=== PATIENT | male | born 1975 | race Caucasian/White ===

== ENCOUNTER 2016-12-18 00:12 | Emergency (ER) | payer OTHER ==
[2016-12-18 00:27] VITALS: BP 145/89; PULSE 91; TEMP 98.3; BMI 25.8
--- NOTE | 2016-12-18 00:51 | PDOC ---
History of Present Illness - General History Source: Patient Exam Limitations: No Limitations - History of Present Illness Initial Comments: The patient is a 41 yo M with a past medical history significant for DM, alcohol use (drinks daily) who presents with L shoulder pain and R ankle pain s/ p falling down flight of stairs at home. The patient states he slipped on water. The patient denies head trauma and LOC. He states that he has pain through his L foot but he is able to bear weight. Patient states he took tylenol with no relief. The patient denies trauma to other areas. The patient denies chest pain, palpitations and lightheadedness. The patient denies nausea , vomiting, diarrhea and abdominal pain. <Keysha Green - Last Filed: 12/18/16 00:55> - General History Source: Patient <TreyPio matt - Last Filed: 12/18/16 01:56> - General Chief Complaint: Injury Stated Complaint: PAIN/RT FOOT Time Seen by Provider: 12/18/16 00:51 Past History <Keysha Green - Last Filed: 12/18/16 00:55> - Immunization History Immunization Up to Date: Yes - Psycho/Social/Smoking Cessation Hx Anxiety: No Suicidal Ideation: No Smoking History: Current every day smoker Have you smoked in the past 12 months: Yes Number of Cigarettes Smoked Daily: 8 Information on smoking cessation initiated: No 'Breaking Loose' booklet given: 08/10/13 Hx Alcohol Use: No Drug/Substance Use Hx: No Substance Use Type: None <Pio Gan - Last Filed: 12/18/16 01:56> - Past Medical History Allergies/Adverse Reactions: Allergies Allergy/AdvReac Type Severity Reaction Status Date / Time No Known Allergies Allergy Verified 12/18/16 00:24 Home Medications: Ambulatory Orders No Home Medications 0 dose .ROUTE UTDICT 08/10/13 Ibuprofen 800 mg PO TID #30 tablet 12/18/16 Review of Systems - Review of Systems Able to Perform ROS?: Yes Comments:: CONSTITUTIONAL: Absent: fever, no chills, no fatigue EYES: Absent: visual changes ENT: Absent: ear pain, no sore throat CARDIOVASCULAR: Absent: chest pain, no palpitations RESPIRATORY: Absent: cough, no SOB GI: Absent: abdominal pain, no nausea, no vomiting, no constipation, no diarrhea GENITOURINARY: Absent: dysuria, no frequency, no hematuria MUSKULOSKELETAL: +L shoulder and r foot pain. Absent: back pain SKIN: Absent: rash <Keysha Green - Last Filed: 12/18/16 00:55> *Physical Exam - Vital Signs Last Vital Signs Temp Pulse Resp BP Pulse Ox 98.3 F 91 H 18 145/89 98 12/18/16 00:25 12/18/16 00:25 12/18/16 00:25 12/18/16 00:25 12/18/16 00:25 - Physical Exam Comments: GENERAL: Well-appearing, well-nourished. No apparent distress. HEENT: Normocephalic, atraumatic. PERRL, EOM intact. CARDIOVASCULAR: Normal S1, S2. Regular rate and rhythm. PULMONARY: Clear to auscultation bilaterally. ABDOMEN: Soft, non-distended, non-tender. EXTREMITIES: Normal ROM in all four extremities. No gross deformities. Tenderness on anterior R foot. SKIN: Warm, dry. No rash NEUROLOGICAL: No focal neurological deficits. <Keysha Green - Last Filed: 12/18/16 00:55> - Vital Signs Last Vital Signs Temp Pulse Resp BP Pulse Ox 98.3 F 91 H 18 145/89 98 12/18/16 00:25 12/18/16 00:25 12/18/16 00:25 12/18/16 00:25 12/18/16 00:25 <Pio Gan - Last Filed: 12/18/16 01:56> ED Treatment Course - RADIOLOGY Radiology Studies Ordered: Category Date Time Status ANKLE & FOOT-RIGHT* [RAD] Stat Radiology 12/18/16 00:30 Ordered <Pio Gan - Last Filed: 12/18/16 01:56> Medical Decision Making - Medical Decision Making 12/18/16 01:55 Dr. aGn: The scribe's documentation has been prepared under my direction and personally reviewed by me in its entirery. I confirm that the note above accurately reflects all work, treatment, procedures, and medical decision making performed by me. <Pio Gan - Last Filed: 12/18/16 01:56> *DC/Admit/Observation/Transfer - Attestations Scribe Attestion: Documentation prepared by Keysha Green, acting as medical artist for Pio Gan MD/. <Keysha Green - Last Filed: 12/18/16 00:55> - Discharge Dispostion Admit: No <Pio Gan - Last Filed: 12/18/16 01:56> Diagnosis at time of Disposition: Right ankle sprain Qualifiers: Encounter type: initial encounter Involved ligament of ankle: unspecified ligament Qualified Code(s): S93.401A - Sprain of unspecified ligament of right ankle, initial encounter Left shoulder strain Qualifiers: Encounter type: initial encounter Qualified Code(s): S46.912A - Strain of unspecified muscle, fascia and tendon at shoulder and upper arm level, left arm , initial encounter - Discharge Dispostion Disposition: HOME Condition at time of disposition: Stable - Referrals Referrals: Jenny Hernandez MD [Primary Care Provider] - Karri Russell MD [Staff Physician] - - Patient Instructions Printed Discharge Instructions: DI for Ankle Sprain, DI for Shoulder Sprain Additional Instructions: Rest, ice, elevate foot. Take medication as directed. Follow up with the doctor referred to you if symptoms don't improve Print Language: SALVADOREAN - Post Discharge Activity Work/School Note: Back to Work
[2016-12-18] MEDS ORDERED: IBUPROFEN 400 MG TABLET (FP) PO ONE ×2 (00:56→01:02)
== END 2016-12-18 01:58 | disposition home or self-care (01) ==
LOC: JER 00:12
DX: S93.401A Sprain of unspecified ligament of right ankle, initial encounter (principal); S46.912A Strain of unspecified muscle, fascia and tendon at shoulder and upper arm level, left arm, initial encounter; E11.9 Type 2 diabetes mellitus without complications; F10.10 Alcohol abuse, uncomplicated; F17.210 Nicotine dependence, cigarettes, uncomplicated; W10.9XXA Fall (on) (from) unspecified stairs and steps, initial encounter; Y93.9 Activity, unspecified; Y92.9 Unspecified place or not applicable
CPT/HCPCS: 73030-TC-LT; 73610-TC-RT; 73630-TC-RT; 99283-25

== ENCOUNTER 2018-07-31 22:22 | Emergency (ER) | payer OTHER ==
[2018-07-31 22:46] VITALS: BP 131/84; PULSE 88; TEMP 98.1; BMI 27.7
--- NOTE | 2018-08-01 01:56 | PDOC ---
History of Present Illness - General Chief Complaint: Weakness Stated Complaint: NUMbNESs IN LEFT HAND Time Seen by Provider: 08/01/18 01:35 History Source: Patient Exam Limitations: No Limitations - History of Present Illness Initial Comments: 08/01/18 01:50 Patient is a 43-year-old male with history of DM here with complaints of weakness to the left wrist unable to extend at the wrist. States he had been drinking for the past 3 days does not remember what happened however he woke up at 8:00 this morning with the risks in this fashion. States no pain, no numbness or tingling. PMD: Unable to remember name PMHX: As above PSOHX: (+) cig 15/day, etoh weekends, no drugs ALL: NKDA GENERAL/CONSTITUTIONAL: [No fever or chills. No weakness. No weight change.] HEAD, EYES, EARS, NOSE AND THROAT: [No change in vision. No ear pain or discharge. No sore throat.] CARDIOVASCULAR: [No chest pain or shortness of breath.] RESPIRATORY: [No cough, wheezing, or hemoptysis.] GASTROINTESTINAL: [No nausea, vomiting, diarrhea or constipation. No rectal bleeding.] GENITOURINARY: [No dysuria, frequency, or change in urination.] MUSCULOSKELETAL: [No joint or muscle swelling or pain. No neck or back pain.] SKIN AND BREASTS: [No rash or easy bruising.] NEUROLOGIC: [No headache, vertigo, loss of consciousness, or loss of sensation.] PSYCHIATRIC: [No depression or anxiety.] ENDOCRINE: [No increased thirst. No abnormal weight change.] HEMATOLOGIC/LYMPHATIC: [No anemia, easy bleeding, or history of blood clots.] ALLERGIC/IMMUNOLOGIC: [No hives or skin allergy. No latex allergy.] GENERAL: [The patient is awake, alert, and fully oriented, in no acute distress. ] HEAD: [Normal with no signs of trauma.] EYES: [Pupils equal, round and reactive to light, extraocular movements intact, sclera anicteric, conjunctiva clear.] ENT: [Ears normal, nares patent, oropharynx clear without exudates. Moist mucous membranes.] NECK: [Normal range of motion, supple without lymphadenopathy, JVD, or masses.] LUNGS: [Breath sounds equal, clear to auscultation bilaterally. No wheezes, and no crackles.] HEART: [Regular rate and rhythm, normal S1 and S2 without murmur, rub.] ABDOMEN: [Soft, nontender, normoactive bowel sounds. No guarding, no rebound. No masses.] EXTREMITIES: [decrease range of motion at the left wrist and fingers to flexion , no edema. No clubbing or cyanosis. No cords, erythema, or tenderness.] NEUROLOGICAL: [Cranial nerves II through XII grossly intact. (+) Wristdrop left (+) radial nerve palsy, (+) sensory is intact left fingers, decrease tension reflex, Normal speech, normal gait.] PSYCH: [Normal mood, normal affect.] SKIN: [Warm, Dry, normal turgor, no rashes or lesions noted.] Past History - Past Medical History Allergies/Adverse Reactions: Allergies Allergy/AdvReac Type Severity Reaction Status Date / Time No Known Allergies Allergy Verified 07/31/18 22:46 Home Medications: Ambulatory Orders No Home Medications 0 dose .ROUTE UTDICT 08/10/13 Ibuprofen 800 mg PO TID #30 tablet 12/18/16 COPD: No - Immunization History Immunization Up to Date: Yes - Suicide/Smoking/Psychosocial Hx Smoking History: Never smoked Have you smoked in the past 12 months: No Number of Cigarettes Smoked Daily: 8 Information on smoking cessation initiated: No 'Breaking Loose' booklet given: 08/10/13 Hx Alcohol Use: No Drug/Substance Use Hx: No Substance Use Type: None *Physical Exam - Vital Signs Last Vital Signs Temp Pulse Resp BP Pulse Ox 98.1 F 88 16 131/84 100 07/31/18 22:43 07/31/18 22:43 07/31/18 22:43 07/31/18 22:43 07/31/18 22:43 Moderate Sedation - Procedure Monitoring Vital Signs: Procedure Monitoring Vital Signs Temperature 98.1 F 07/31/18 22:43 Pulse Rate 88 07/31/18 22:43 Respiratory Rate 16 07/31/18 22:43 Blood Pressure 131/84 07/31/18 22:43 O2 Sat by Pulse Oximetry (%) 100 07/31/18 22:43 Medical Decision Making - Medical Decision Making 08/01/18 01:50 Patient is a 43-year-old male with history of DM here with complaints of weakness to the left wrist unable to extend at the wrist. States he had been drinking for the past 3 days does not remember what happened however he woke up at 8:00 this morning with the risks in this fashion. States no pain, no numbness or tingling. Symptoms consistent with radial nerve palsy. Cock-up splint Referral to neurology I discussed the physical exam findings, ancillary test results and final diagnoses with the patient. I answered all of the patient's questions. The patient was satisfied with the care received and felt comfortable with the discharge plan and treatment plan. The Patient agrees to follow up with the primary care physician within 24-72 hours. *DC/Admit/Observation/Transfer Diagnosis at time of Disposition: Left radial nerve palsy - Discharge Dispostion Disposition: HOME Condition at time of disposition: Stable - Referrals Referrals: Addi Giraldo MD [Staff Physician] - - Patient Instructions Printed Discharge Instructions: DI for Radial Tunnel Syndrome Additional Instructions: Your Discharge Instructions: You must call primary care physician within 24 hours to arrange follow-up. Return to the Emergency Department with any new, persistent or worsening symptoms, for fever, chills, SOB, dizziness or any other concerning changes that may occur. You must follow up with the neurologist. Wear the splint daily you may take it off for bathing. - Post Discharge Activity
== END 2018-08-01 02:25 | disposition home or self-care (01) ==
LOC: JER 22:22
DX: G56.32 Lesion of radial nerve, left upper limb (principal); E11.9 Type 2 diabetes mellitus without complications; F17.210 Nicotine dependence, cigarettes, uncomplicated
CPT/HCPCS: 99281-25

== ENCOUNTER 2021-04-20 22:13 | Emergency (ER) | payer OTHER ==
[2021-04-20 22:34] VITALS: BP 147/75; PULSE 116; TEMP 98; BMI 25.8
[2021-04-20] MEDS ORDERED: LACTATED RINGERS SOLUTION 1000 ML INFUS.BAG IV ONE (22:50)
[2021-04-20 23:13] LABS: BASO % 0.2 % (0-2.0); EOS % 0.4 % (0-4.5); HEMATOCRIT 40.4 % (35.4-49); MCH 29.5 pg (25.7-33.7); MCHC 34.7 g/dl (32.0-35.9); MEAN CELL VOLUME 84.9 fl (80-96); MEAN PLT VOLUME 9.6 fl (7.5-11.1); MONO % 7.4 % (3.8-10.2); PLATELET COUNT 137 10^3/uL (134-434); RBC 4.76 M/mm3 (4.00-5.60); RDW 12.1 % (11.9-15.9); WHITE BLOOD COUNT 8.9 K/mm3 (4.0-10.0)
[2021-04-20 23:30] LABS: CHLORIDE 96 mmol/L (98-107); SODIUM 132 mmol/L (136-145)
[2021-04-20 23:33] LABS: ANION GAP 15 MMOL/L (8-16); BLOOD UREA NITROGEN 8.3 mg/dL (7-18); CALCIUM 9.6 mg/dL (8.5-10.1); CO2 21 mmol/L (21-32)
[2021-04-20 23:35] LABS: CREATININE 0.9 mg/dL (0.55-1.3); SGOT/AST 22 U/L (15-37); SGPT/ALT 31 U/L (13-61)
[2021-04-20 23:37] LABS: BILIRUBIN,TOTAL 0.4 mg/dL (0.2-1); TOT PROT 8.1 g/dl (6.4-8.2)
[2021-04-20 23:38] LABS: ALK PHOS 138 U/L (45-117)
[2021-04-20 23:41] LABS: GLUCOSE,RANDOM 428 mg/dL (74-106)
[2021-04-21] MEDS ORDERED: ACETAMINOPHEN 1000 MG/100 ML VIAL IVPB ONE (01:21)
[2021-04-21] MEDS ORDERED: ACETAMINOPHEN INJECTION 100 ML IVPB ONE (01:28)
== END 2021-04-21 03:06 | disposition home or self-care (01) ==
LOC: JER 22:13
PROC: 3E033GC Introduction of Other Therapeutic Substance into Peripheral Vein, Percutaneous Approach (ICD-10-PCS; principal; 2021-04-20)
DX: S99.912A Unspecified injury of left ankle, initial encounter (principal); S89.91XA Unspecified injury of right lower leg, initial encounter; E11.65 Type 2 diabetes mellitus with hyperglycemia; W19.XXXA Unspecified fall, initial encounter
CPT/HCPCS: 36415; 70450-TC; 73560-TC-RT-FY; 73610-TC-LT-FY; 73630-TC-LT; 80053; 85025; 99285-25; J0131

== ENCOUNTER 2023-07-04 18:06 | Emergency (ER) | payer OTHER ==
[2023-07-04 18:12] VITALS: BP 182/103; PULSE 94; RESP 18; TEMP 97.6; BMI 25.0
[2023-07-04] MEDS ORDERED: LIDOCAINE 4% PATCH TP ONE (20:19)
[2023-07-04] MEDS ORDERED: KETOROLAC TROMETHAMINE 30 MG/1 ML VIAL ONE (20:19)
[2023-07-04] MEDS: KETOROLAC TROMETHAMINE 30 MG/1 ML VIAL IM ONE ×2 (20:35→20:38)
[2023-07-04] MEDS: LIDOCAINE 4% PATCH TP ONE (20:35)
[2023-07-04] MEDS: LIDOCAINE 5% TOPICAL PATCH TP ONE (20:38)
[2023-07-04] MEDS ORDERED: LIDOCAINE PATCH REMOVAL MC SCH (22:00)
[2023-07-05] MEDS ORDERED: LIDOCAINE PATCH REMOVAL MC SCH (08:00)
== END 2023-07-04 21:14 | disposition home or self-care (01) ==
LOC: JER 18:06
PROC: 3E0233Z Introduction of Anti-inflammatory into Muscle, Percutaneous Approach (ICD-10-PCS; principal; 2023-07-04)
DX: R07.81 Pleurodynia (principal); R10.9 Unspecified abdominal pain; W22.09XA Striking against other stationary object, initial encounter; Y92.89 Other specified places as the place of occurrence of the external cause
CPT/HCPCS: 71046-TC-FY; 71101-TC-LT-FY; 99284-25